=== PATIENT | male | born 1930 | race Caucasian/White ===

== ENCOUNTER 2017-07-20 22:40 | Emergency (ER) | payer MEDICARE, BC, OTHER ==
--- NOTE | 2017-07-20 23:27 | RAD ---
TWO VIEWS OF CHEST 07/20/17 COMPARISON: 05/20/16 HISTORY: Cough and fever. FINDINGS: The lungs are hyperinflated with increased linear interstitial density, stable. no pneumothorax, pleu ral fluid, focal consolidation, or alveolar edema. IMPRESSION: Hyperinflated lungs with diffuse interstitial prominence suggests COPD. No focal consolidation or cailin eolar edema. POS: [facility]
== END 2017-07-20 23:20 | disposition home or self-care (01) ==
LOC: SCSER 22:40
DX: J40 Bronchitis, not specified as acute or chronic (principal); Z86.711 Personal history of pulmonary embolism; Z79.01 Long term (current) use of anticoagulants; Z79.899 Other long term (current) drug therapy
CPT/HCPCS: 71046; 87804

== ENCOUNTER 2017-09-03 15:32 | Emergency (ER) | payer MEDICARE, BC, OTHER ==
[2017-09-03 15:54] LABS: #Basophils 0.1 thou/uL (0.0-0.2); #Eosinphils 0.2 thou/uL (0.0-0.7); #Lymphocytes 2.4 thou/uL (1.20-3.40); #Monocytes 0.8 thou/uL (0.11-0.59); #Neutrophils 4.4 thou/uL (1.40-6.50); %Lymphocytes 30.3 % (21.0-51.0); %Monocytes 9.6 % (0.0-10.0); %Neutrophils 56.1 % (42.0-75.0); Hemoglobin 14.9 g/dL (14.0-18.0); Mean Corpuscular HGB CONC 33.1 g/dL (32.0-36.0); Mean Corpuscular Hemoglobin 31.1 pg (27.0-31.0); Mean Corpuscular Volume 94.1 fl (80.0-94.0); Mean Platelet Volume 6.3 fL (7.4-10.4); Platelet Count 153 thou/uL (130-400); RBC Distribution Width 12.1 % (11.5-14.5); Red Blood Cell (RBC) Count 4.79 mill/uL (4.70-6.10); White Blood Cell (WBC) Count 7.8 thou/uL (4.8-10.8)
[2017-09-03 16:00] LABS: INR-International Normal Ratio 1.6; PTT 35.5 SEC (22.9-36.1); Prothrombin Time 19.8 SEC (12.0-14.7)
[2017-09-03 16:14] LABS: ALT (SGPT) 16 U/L (8-55); AST (SGOT) 19 U/L (5-34); Albumin 3.5 g/dL (3.4-4.8); Alkaline Phosphatase 72 U/L (40-150); Anion Gap 12 mmol/L (10-20); BUN (Urea Nitrogen) 15 mg/dL (8.4-25.7); Bilirubin, Total 0.4 mg/dL (0.2-1.2); CK (CPK) 97 U/L (30-200); Calc. Creatinine Clearance 0 mL/min (70-130); Calcium 9.1 mg/dL (7.8-10.44); Carbon Dioxide 27 mmol/L (23-31); Chloride 106 mmol/L (98-107); Estimated GFR-MDRD 78; Globulin 3.2 g/dL (2.4-3.5); Glucose 110 mg/dL (83-110); Protein, Total 6.7 g/dL (5.8-8.1); Sodium 141 mmol/L (136-145)
[2017-09-03 16:19] LABS: CKMB 2.3 ng/mL (0-6.6); Troponin I Less than 0.010 ng/mL (< 0.028)
== END 2017-09-03 17:21 | disposition home or self-care (01) ==
LOC: ERS 15:32
DX: R00.2 Palpitations (principal); Z86.711 Personal history of pulmonary embolism; Z86.718 Personal history of other venous thrombosis and embolism
CPT/HCPCS: 80053; 82550; 82553; 83880; 84484; 85025; 85610; 85730; 93005; 94760

== ENCOUNTER 2017-09-04 15:21 | Inpatient (IN) | payer MEDICARE, BC, OTHER ==
[2017-09-04 16:01] LABS: #Eosinphils 0.1 thou/uL (0.0-0.7); #Lymphocytes 1.5 thou/uL (1.20-3.40); #Monocytes 0.6 thou/uL (0.11-0.59); #Neutrophils 7.4 thou/uL (1.40-6.50); %Basophils 0.2 % (0.0-1.0); %Lymphocytes 15.2 % (21.0-51.0); %Monocytes 6.5 % (0.0-10.0); %Neutrophils 77.1 % (42.0-75.0); Hemoglobin 14.4 g/dL (14.0-18.0); Mean Corpuscular HGB CONC 31.9 g/dL (32.0-36.0); Mean Corpuscular Hemoglobin 31.1 pg (27.0-31.0); Mean Corpuscular Volume 97.7 fl (80.0-94.0); Mean Platelet Volume 6.5 fL (7.4-10.4); Platelet Count 145 thou/uL (130-400); RBC Distribution Width 12.3 % (11.5-14.5); Red Blood Cell (RBC) Count 4.62 mill/uL (4.70-6.10); White Blood Cell (WBC) Count 9.6 thou/uL (4.8-10.8)
[2017-09-04 16:09] LABS: INR-International Normal Ratio 1.6; Prothrombin Time 19.4 SEC (12.0-14.7)
[2017-09-04 16:24] LABS: ALT (SGPT) 20 U/L (8-55); AST (SGOT) 22 U/L (5-34); Albumin 3.5 g/dL (3.4-4.8); Alkaline Phosphatase 71 U/L (40-150); Anion Gap 12 mmol/L (10-20); BUN (Urea Nitrogen) 15 mg/dL (8.4-25.7); Bilirubin, Total 0.5 mg/dL (0.2-1.2); Calc. Creatinine Clearance 0 mL/min (70-130); Calcium 9.1 mg/dL (7.8-10.44); Carbon Dioxide 25 mmol/L (23-31); Chloride 107 mmol/L (98-107); Estimated GFR-MDRD 73; Globulin 3.2 g/dL (2.4-3.5); Glucose 120 mg/dL (83-110); Protein, Total 6.7 g/dL (5.8-8.1); Sodium 140 mmol/L (136-145)
--- NOTE | 2017-09-04 16:36 | RAD ---
TWO VIEWS LEFT FEMUR 09/04/17 HISTORY: Left lower extremity pain after a fall. FINDINGS: There is a subcapital left femoral neck fracture with varus angulation of the fracture fragments. Dis jose francisco fragment is slightly displaced superiorly. No additional fracture is present. Prominent vascular calcifications are seen posterior to the knee in the region of the popliteal artery. IMPRESSION: Subcapital left femoral neck fracture with varus angulation and mild displacement of fracture fragmen ts. POS: [facility]
--- NOTE | 2017-09-04 16:41 | RAD ---
AP PELVIS RADIOGRAPH 09/04/17 HISTORY: Left lower extremity pain after a fall. COMPARISON: None available. FINDINGS: There is a subcapital left femoral neck fracture with varus angulation and mild impaction of fracture fragments. Distal fracture is slightly displaced superiorly. There is no dislocation and no addition al fracture is appreciated. Degenerative changes are seen in the lower lumbar spine at the pubic symp hysis. Phleboliths overlie the pelvis. IMPRESSION: Mildly angulated and slightly displaced subcapital left femoral neck fracture. POS: [facility]
--- NOTE | 2017-09-04 16:43 | RAD ---
CHEST ONE VIEW: 09/04/17 HISTORY: Chest pain. COMPARISON: 06/27/10. FINDINGS: The cardiac silhouette and pulmonary vasculature are unremarkable. Mediastinum is midline with aortic calcification. No lobar consolidation or evidence of pneumothorax. Lungs are hyperinflated with inte rstitial prominence. lunchroom monitor leads overlie the chest. IMPRESSION: 1. COPD. 2. Atherosclerosis. POS: [facility]
--- NOTE | 2017-09-04 16:44 | RAD ---
SINGLE AP VIEW LEFT HIP: 09/04/17 HISTORY: Left lower extremity pain after a fall. FINDINGS: There is a subcapital left femoral neck fracture with varus angulation of fracture fragments. There i s also mild impaction of the fracture fragments and the distal fracture fragment is displaced superio rly. No definite additional fractures seen, and there is no dislocation. IMPRESSION: Subcapital left femoral neck fracture. POS: [facility]
[2017-09-04] MEDS ORDERED: Fentanyl 100 MCG/2 ML VIAL ONE (17:38)
--- NOTE | 2017-09-04 17:52 | CT ---
NONCONTRAST CT HEAD 09/04/17 HISTORY: Patient fell and is on blood thinners. COMPARISON: 01/11/10. FINDINGS: There is decreased attenuation seen in the periventricular white matter which is nonspecific but like ly reflective of chronic small vessel ischemic changes which do appear mildly progressed when compare d to the prior exam. There is no evidence of an acute cortical infarction, hemorrhage, mass effect, o r midline shift. Cerebral volume loss is again present. The ventricular system is normal in size, sha pe, and position for the degree of sulcal atrophy. No depressed calvarial fracture is seen. There has been no other interval change from prior exam. IMPRESSION: 1. No acute intracranial abnormality is demonstrated. 2. Chronic small vessel ischemic changes and cerebral volume loss. POS: [facility]
--- NOTE | 2017-09-04 18:47 | HP ---
REQUESTING PHYSICIAN: Dr. Palafox, ER. ADMITTING PHYSICIAN: Dr. Shepherd. CONSULTING PHYSICIAN: Dr. Beltran, Orthopedics. REASON FOR HOSPITALIZATION: Ground level fall with left hip pain. HOSPITAL DIAGNOSIS: Left femoral neck subcapital fracture. HISTORY OF PRESENT ILLNESS: Mr. Mcmahan is an 86-year-old male who was in his usual state of health this morning when he walked into the house and was leaning over to kiss his when she lost her ba masood and fell. He attempted to catch her and keep her from falling to the ground when he himself fe ll to the ground onto his left hip. He denied any other injury. He denied striking his head. He de nied LOC. He felt immediate pain in his left hip and leg. EMS was summoned and he was taken to [facility] where a left hip fracture was identified. Pain is exacerbated by movemen t. Pain is relieved by remaining still. Past medical history includes history of DVT and pulmonary embolism for which he takes Xarelto. Trauma Services has been consulted for admission and management . Dr. Beltran, Orthopedics, has been consulted for management of fracture. PAST MEDICAL HISTORY: DVT x2, pulmonary embolism x2. This is approximately 4-5 years ago. PAST SURGICAL HISTORY: 1. Lumbar laminectomy L3-L4, L4-L5 in 2012. 2. Appendectomy. 3. Hernia repair in 1998. SOCIAL HISTORY: The patient lives at home with . The patient previously smoked cigarettes. He stopped smoking 35 years ago. He reports that he does smoke a cigar daily. The patient denies alcoh ol use. The patient denies drug use. CURRENT MEDICATIONS: 1. Xarelto 10 mg. 2. Zetia, unknown mg. ALLERGIES: No known drug allergies. REVIEW OF SYSTEMS: Constitutional: The patient denies chills, fever, recent weight loss or malaise. HEENT: The patient denies pain or redness or drainage. ENT: The patient denies ear pain or drain age. No mouth or neck pain. Cardiovascular: Denies chest pain, palpitations or syncope. Respirato ry: Denies cough, wheezing or shortness of breath. Gastrointestinal: Denies abdominal pain, nausea , vomiting or diarrhea. Genitourinary: Denies dysuria, hematuria, frequency or urgency. Musculoske letal: The patient reports fall, left hip and leg pain. Skin: Denies rashes, denies trauma. Neuro logic: Denies dizziness, denies headache, denies seizures. PHYSICAL EXAMINATION: VITAL SIGNS: Pulse 88, respirations 18, blood pressure 124/69 and O2 sat 93% room air. GENERAL: Elderly male lying in bed in no acute distress. HEENT: Atraumatic and normocephalic. No posterior neck pain. Trachea midline. No JVD. RESPIRATORY: Bilateral breath sounds clear. No respiratory distress. Symmetrical chest wall moveme nt. CARDIOVASCULAR: Regular rate and rhythm. Heart sounds normal. ABDOMEN: Soft, nontender and nondistended. Bowel sounds normal. Pelvis pain to the left hip with p alpation. EXTREMITIES: Pain in the left leg with palpation or movement. Cap refill brisk in all extremities. Neurovascular intact all extremities. BACK: No pain, no trauma. NEUROLOGIC: GCS 15. Awake, alert and oriented x3. SKIN: Within normal limits. Warm and dry. LABORATORY STUDIES: WBC 9.6, RBC 4.62, hemoglobin 14.4, hematocrit 45.1 and platelets 145. Coagulat ion: PT 19.4, INR 1.6. Chemistry: Sodium 140, potassium 4.0, chloride 107, carbon dioxide 25, BUN 15, creatinine 0.97 and glucose 120. DIAGNOSTIC IMAGING: Subcapital left femoral neck fracture. ASSESSMENT AND PLAN: 1. Status post ground level fall. 2. History of deep venous thrombosis and pulmonary embolism, currently on Xarelto. 3. Left subcapital hip fracture. 4. Acute traumatic pain. PLAN: 1. Admit to surgical floor. 2. Consult Orthopedics, Dr. Beltran, done by ER. 3. Regular diet, n.p.o. after midnight. IV fluids after midnight. 4. Hold Xarelto. SCDs for DVT prophylaxis. 5. Pepcid for gastritis prophylaxis. 6. PT, OT evaluation postoperatively with orthopedic restrictions. The patient was reviewed with Dr. Shepherd who agrees with the plan.
[2017-09-04] MEDS ORDERED: Dextrose 5% in Water 1,000 ML IV PRN (19:02)
[2017-09-04] MEDS ORDERED: Dextrose 50% Abboject 50 ML SYRINGE SLOW IVP PRN (19:02)
[2017-09-04] MEDS ORDERED: Morphine 4 MG/ML VIAL IV PRN (19:02)
[2017-09-04] MEDS ORDERED: Acetaminophen 500 MG TAB PO PRN (19:02)
[2017-09-04] MEDS: Pantoprazole 40 MG VIAL IVP SCH (20:51)
[2017-09-04] MEDS ORDERED: Famotidine/PF 20 mg/2ml Vial SLOW IVP SCH (21:00)
--- NOTE | 2017-09-04 23:32 | PRG ---
DATE OF SERVICE: 09/04/2017 SUBJECTIVE: The patient is currently on the surgical floor. He was admitted earlier today for groun d level fall in which he sustained left femoral neck fracture. He is currently awaiting his orthoped ic repair in the morning. The patient states that his pain is controlled and he is denying wanting a ny p.o. at this time. He was made aware that he will be n.p.o. after midnight, which he agreed that he had been told that. PHYSICAL EXAMINATION: VITAL SIGNS: Temperature is 98.3, heart rate 78, blood pressure 146/81, respirations 20, oxygen satu ration is 96% on 2 liters via nasal cannula. GENERAL: The patient is resting comfortably in bed. He is awake, alert, and oriented x3 and appropr iate. LUNGS: Clear to auscultation with good inspiratory and expiratory effort. HEART: Regular rate and rhythm. ABDOMEN: Soft, flat, nontender with active bowel sounds. EXTREMITIES: Neurovascularly intact x4. ASSESSMENT: 1. Status post ground level fall. 2. Left femoral neck fracture. 3. History of Xarelto use. PLAN: Will be to continue supportive care, pain management and await orthopedic repair in the [facility]. Afterwards, the patient most likely will begin physical and occupational therapy and placement di scussions will be started.
[2017-09-05] MEDS: Acetaminophen 1,000 MG in Premix Bag 1 BAG IVPB SCH ×3 (00:16→12:01)
[2017-09-05] MEDS: Sodium Chloride 0.9% 1,000 ML IV SCH ×3 (00:16→17:45)
--- NOTE | 2017-09-05 04:03 | CON ---
DATE OF CONSULTATION: 09/04/2017 CHIEF COMPLAINT: Left hip pain. HISTORY OF PRESENT ILLNESS: Mr. Mcmahan is an 86-year-old male who fell today. He was trying to hel p prevent his from falling when they both lost balance and fell to the ground. He attempted to catch her, but felt his hip give way. He landed on a tile floor. He was unable to ambulate. He den ied loss of consciousness and did not strike his head. He was taken to the emergency department by [facility]. He has been found to have a left femoral neck fracture. Orthopedics was consulted as well as [facility] Trauma Service. The patient is having some pain in the hip. He has received pain medications. He has had no instability. PAST MEDICAL HISTORY: History of DVT and subsequent pulmonary embolism. He has been on Xarelto and is planning to be on this for life. He denies other active medical problems currently. PAST SURGICAL HISTORY: Lumbar laminectomy, appendectomy, hernia repair. SOCIAL HISTORY: The patient lives with his . They are independent. He does not use a cane or a walker. He denies smoking cigarettes, but does smoke an occasional cigar. No drinking or drug use. MEDICATIONS: Include Xarelto and Zetia. ALLERGIES: No known drug allergies. REVIEW OF SYSTEMS: Positive for left hip pain with movement, otherwise 10 point review of systems is negative. PHYSICAL EXAMINATION: VITAL SIGNS: Stable, normotensive, 98% on room air. GENERAL: He is alert and oriented, no apparent distress. RESPIRATORY: Breathing comfortably. HEENT: Normocephalic, atraumatic. ABDOMEN: Soft, nontender, nondistended. MUSCULOSKELETAL: The patient's left leg has pain with motion. He is shortened and externally rotate d in the leg. He is able flex and extend the toes and ankle. Palpable dorsalis pedis pulse. IMAGES: X-rays of the left femur and pelvis demonstrate a displaced left femoral neck fracture which is acute. IMPRESSION: Left displaced femoral neck fracture in an elderly male. PLAN: At this point, the patient will be admitted to the hospital. He will have pain control. He w ill have appropriate resuscitation and preoperative medical optimization. He should be a good candid ate for surgery. I would like to take him to surgery tomorrow for bipolar hemiarthroplasty of the hi p to restore mobility and prevent complications of prolonged bed rest. He is at high risk of DVT or PE given his history. We will restart him on his blood thinner postoperatively. He will have mechan ical DVT prophylaxis as well. Questions have been answered. He is aware of risks and wants to proce ed.
[2017-09-05 04:35] LABS: #Eosinphils 0.2 thou/uL (0.0-0.7); #Lymphocytes 1.8 thou/uL (1.20-3.40); #Neutrophils 7.4 thou/uL (1.40-6.50); %Basophils 0.2 % (0.0-1.0); %Eosinophils 1.8 % (0.0-10.0); %Lymphocytes 17.4 % (21.0-51.0); %Monocytes 9.4 % (0.0-10.0); %Neutrophils 71.2 % (42.0-75.0); Hemoglobin 13.3 g/dL (14.0-18.0); Mean Corpuscular HGB CONC 33.4 g/dL (32.0-36.0); Mean Corpuscular Hemoglobin 32.3 pg (27.0-31.0); Mean Corpuscular Volume 96.7 fl (80.0-94.0); Mean Platelet Volume 7.1 fL (7.4-10.4); Platelet Count 125 thou/uL (130-400); RBC Distribution Width 12.2 % (11.5-14.5); Red Blood Cell (RBC) Count 4.12 mill/uL (4.70-6.10); White Blood Cell (WBC) Count 10.4 thou/uL (4.8-10.8)
[2017-09-05 04:39] LABS: Anion Gap 10 mmol/L (10-20); BUN (Urea Nitrogen) 14 mg/dL (8.4-25.7); Calc. Creatinine Clearance 77 mL/min (70-130); Calcium 8.6 mg/dL (7.8-10.44); Carbon Dioxide 27 mmol/L (23-31); Chloride 107 mmol/L (98-107); Estimated GFR-MDRD 87; Glucose 108 mg/dL (83-110); Magnesium 1.9 mg/dL (1.6-2.6); Phosphorus 3.3 mg/dL (2.3-4.7); Potassium 3.9 mmol/L (3.5-5.1); Sodium 140 mmol/L (136-145)
[2017-09-05] MEDS ORDERED: CEFAZOLIN/Water 2 GM/20 ML SYRINGE ONE (07:40)
[2017-09-05] MEDS ORDERED: Neomycin-Polymyxin 1 ML AMP ONE (07:54)
[2017-09-05] MEDS ORDERED: CEFAZOLIN/Water 2 GM/20 ML SYRINGE SLOW IVP SCH (08:00)
[2017-09-05] MEDS ORDERED: Fentanyl 100 MCG/2 ML VIAL ONE (08:43)
[2017-09-05] MEDS ORDERED: Promethazine HCl 25 MG/ML VIAL IM PRN (09:13)
[2017-09-05] MEDS ORDERED: Promethazine HCl 25 MG/ML VIAL SLOW IVP PRN (09:13)
[2017-09-05] MEDS ORDERED: Ondansetron HCl/PF 4 MG/2 ML Vial IVP PRN (09:13)
--- NOTE | 2017-09-05 10:15 | RAD ---
SINGLE CROSS TABLE LATERAL VIEW OF LEFT HIP: Date: 09/05/17 INDICATION: Surgical fixation. FINDINGS: There is a prosthesis in place, appropriately aligned on the provided lateral view. IMPRESSION: Postoperative left hip. POS: [facility]
--- NOTE | 2017-09-05 10:16 | RAD ---
FRONTAL VIEW PELVIS: Date: 09/05/17 INDICATION: Fracture fixation. FINDINGS: Left hip prosthesis is present and appropriately aligned where visualized. Skin jailyn overlie the l eft lateral pelvic soft tissues. There is osseous degenerative change. IMPRESSION: Postoperative left hip. POS: [facility]
--- NOTE | 2017-09-05 10:20 | PRG ---
DATE OF SERVICE: 09/05/2017 Please see Marlen Majano' full H and P and Grey Fleming's note from last night. Briefly, the patient is a status post ground level fall, left femoral neck fracture. He is on his wa y to the operating room today for Devin to repair that, has a history of Xarelto. 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 He has been hemodynamically stable. Please see Marlen Majano' note for full detail s. PLAN: ORIF of femoral neck fracture today. Plan to resume Xarelto postop. We will follow.
--- NOTE | 2017-09-05 14:55 | OP ---
DATE OF OPERATION: 09/05/2017 OPERATION PERFORMED: Left hip bipolar hemiarthroplasty. PREOPERATIVE DIAGNOSIS: Left femoral neck fracture. POSTOPERATIVE DIAGNOSIS: Left femoral neck fracture. COMPLICATIONS: None. ESTIMATED BLOOD LOSS: Minimal. SURGEON: Humberto Beltran M.D. TURN MACHINE OPERATOR: Rojelio Sarkar PA-C. IMPLANTS: DePuy Quinnesec basic press-fit stem size 6, 53 mm bipolar shell with a +5 femoral head. INDICATIONS: Mr. Mcmahan is an 86-year-old male who fell. He fractured his left femoral neck. He w as indicated for hemiarthroplasty of the hip to restore mobilization and promote healing. Risks have been reviewed and have been deemed acceptable. He elected to proceed with the operation. DESCRIPTION OF PROCEDURE: Mr. Mcmahan was identified in the preoperative holding area. His correct extremity was marked. He was carried to the operating room. He was positioned supine. General anes thesia was induced. A multidisciplinary timeout was performed. The left lower extremity was prepped and draped in a sterile fashion. We began the procedure with a posterior approach to the hip. We dissected down through the subcutane ous tissues to the fascia, which was opened. We then exposed the short external rotators of the hip. These were subperiosteally divided from the proximal femur. We then removed the patient's broken f emoral head. We performed a new osteotomy of the femoral neck. At this point, we removed any bony f ragments and thoroughly irrigated. We then entered the intramedullary canal of the femur. We latera lized and then reamed up to a size 6. We then sequentially broached up to a size 6. This gave a goo d fit. We proceeded with trialing a +8.5 femoral head which was appropriate for length. The patient had good range of motion and was stable. We removed the trial components. We then impacted our fin al components after irrigation. Finally, we placed a #5 Ethibond suture in the short external rotato rs and brought this through drill holes in the trochanter. These were repaired. We then closed the fascia with #2 Vicryl suture, 2-0 Vicryl suture and jailyn were used. A sterile dressing was applie d. The patient was taken to the recovery room in good condition without complication at this point.
[2017-09-05] MEDS ORDERED: traMADol HCl 50 MG TAB PO SCH (15:00)
--- NOTE | 2017-09-05 15:19 | PRG ---
DATE OF SERVICE: 09/05/2017 ATTENDING PHYSICIAN: Donavon Shepherd M.D. SUBJECTIVE: Mr. Mcmahan is an 86-year-old man who was admitted 1 day ago, status post ground level f all. He sustained a left hip fracture. He was taken to the OR today by Orthopedic Surgery. He is n ow seen postoperatively on the surgical floor. Pain is well controlled and he is sitting up in bed, eating. OBJECTIVE: VITAL SIGNS: Temperature 98.1, pulse 82, respirations 16, O2 sat 90% on room air and blood pressure 93/52. GENERAL: An elderly male lying in bed in no acute distress. HEENT: Atraumatic and normocephalic. RESPIRATORY: Bilateral breath sounds clear. No respiratory distress. CARDIOVASCULAR: Regular rate and rhythm. Heart sounds normal. ABDOMEN: Soft, nontender and nondistended. EXTREMITIES: Moves all extremities. Cap refill brisk, 2+ pulses in all extremities. Surgical dress ing in place left hip, clean, dry, and intact. NEUROLOGIC: GCS 15. Awake, alert and oriented x3. ASSESSMENT: 1. Status post ground level fall. 2. Status post open reduction and internal fixation left hip, postoperative day #0. 3. Acute traumatic pain, well controlled. 4. History of deep venous thrombosis and pulmonary embolism. PLAN: 1. Transition from IV to oral analgesia. 2. PT, OT evaluation and treatment with orthopedic restrictions. 3. Advance to regular diet. 4. Discontinue IV fluids if tolerates regular diet. 5. Restart the patient's home Xarelto. 6. Antibiotics per Orthopedic Service. The patient was reviewed with Dr. Shepherd, who agrees with the plan.
[2017-09-05] MEDS ORDERED: Ondansetron HCl/PF 4 MG/2 ML Vial ONE (17:08)
[2017-09-05] MEDS ORDERED: Dexamethasone 20 MG/5 ML VIAL ONE (17:08)
[2017-09-05] MEDS ORDERED: PHENYLEPHRINE-NS 100 MCG/ML 10 ML SYRINGE ONE (17:08)
[2017-09-05] MEDS ORDERED: Lidocaine 1% PF 5 ML VIAL ONE (17:08)
[2017-09-05] MEDS ORDERED: PROPOFOL 200 MG/20 ML VIAL ONE (17:08)
[2017-09-05] MEDS ORDERED: Glycopyrrolate 0.2 MG/ML 5 ML SYRINGE ONE (17:08)
[2017-09-05] MEDS ORDERED: Esmolol 100 MG/10 ML VIAL ONE (17:08)
[2017-09-05] MEDS: CEFAZOLIN/Water 2 GM/20 ML SYRINGE SLOW IVP SCH ×2 (17:27→23:25)
[2017-09-05] MEDS: Acetaminophen 500 MG TAB PO SCH ×2 (18:12→23:25)
[2017-09-05] MEDS: Pantoprazole 40 MG VIAL IVP SCH (20:01)
[2017-09-06] MEDS: Sodium Chloride 0.9% 1,000 ML IV SCH ×3 (02:37→17:56)
[2017-09-06] MEDS: Acetaminophen 500 MG TAB PO SCH ×3 (05:56→17:57)
[2017-09-06 08:44] LABS: #Eosinphils 0.1 thou/uL (0.0-0.7); #Lymphocytes 1.5 thou/uL (1.20-3.40); #Monocytes 1.5 thou/uL (0.11-0.59); #Neutrophils 12.5 thou/uL (1.40-6.50); %Basophils 0.3 % (0.0-1.0); %Eosinophils 0.4 % (0.0-10.0); %Lymphocytes 9.5 % (21.0-51.0); %Monocytes 9.7 % (0.0-10.0); %Neutrophils 80.1 % (42.0-75.0); Mean Corpuscular HGB CONC 33.4 g/dL (32.0-36.0); Mean Corpuscular Hemoglobin 31.6 pg (27.0-31.0); Mean Corpuscular Volume 94.6 fl (80.0-94.0); Mean Platelet Volume 6.6 fL (7.4-10.4); Platelet Count 105 thou/uL (130-400); White Blood Cell (WBC) Count 15.6 thou/uL (4.8-10.8)
[2017-09-06] MEDS: Rivaroxaban 10 MG TAB PO SCH (08:47)
--- NOTE | 2017-09-06 14:26 | PRG ---
DATE OF SERVICE: 09/06/2017 ATTENDING PHYSICIAN: Dr. Shaun Shepherd. SUBJECTIVE: Mr. Mcmahan is an 86-year-old man who was admitted 2 days ago, status post ground level fall. He sustained a left hip fracture. He was taken to the OR yesterday by Orthopedic Surgery. He has been managed on the surgical floor postoperatively. His pain has been well controlled. He is m obilizing with physical and occupational therapy. OBJECTIVE: VITAL SIGNS: Temperature 98.1, pulse 75, respirations 20, O2 sat 92% on 2 liters nasal cannula, bloo d pressure 124/68. GENERAL: Elderly male sitting up in chair, no acute distress. HEENT: Atraumatic, normocephalic. RESPIRATORY: Bilateral breath sounds clear. No respiratory distress. CARDIOVASCULAR: Regular rate and rhythm. Heart sounds normal. ABDOMEN: Soft, nontender, nondistended. EXTREMITIES: Moves all extremities. Cap refill brisk. 2+ pulses in all extremities. Surgical dres sing in place left hip, clean, dry and intact. NEUROLOGIC: GCS 15. Awake, alert, oriented x3. LABORATORY DATA: Hematology: RBC 3.80, hemoglobin 12.0 down from 13.3 yesterday, hematocrit 36.0 do wn from 39.8. ASSESSMENT: 1. Status post ground level fall. 2. Status post open reduction and internal fixation left hip. Postoperative day #1. 3. Acute traumatic pain well controlled. 4. History of deep venous thrombosis and pulmonary embolism. PLAN: 1. Continue oral analgesia. 2. Continue PT, OT while in hospital. 3. Discontinue IV fluids. 4. Continue home dose Xarelto. 5. Antibiotics per Orthopedic Service. 6. Case management for discharge planning. Anticipate patient will discharge to rehab. The patient was seen and examined with Dr. Shepherd who agrees with this plan.
[2017-09-06] MEDS: Pantoprazole 40 MG VIAL IVP SCH (20:08)
[2017-09-06] MEDS: Senokot S 8.6-50 MG TAB PO SCH (20:09)
--- NOTE | 2017-09-06 22:38 | PRG ---
DATE OF SERVICE: 09/06/2017 SUBJECTIVE: The patient is hospital day #2, postop day #1 status post ground level fall in which he sustained left hip fracture. Yesterday, he was taken to the operating room and underwent his orthope dic repair of the hip fracture. Today, he had been working with physical and occupational therapy, a nd had made very good progress with them. He states that his pain is controlled and he is tolerating a diet. His bowel function has not returned at this time. PHYSICAL EXAMINATION: VITAL SIGNS: Temperature is 98.4, heart rate 83, blood pressure 124/70, respirations 18, oxygen satu ration is 94% on 2 liters via nasal cannula. GENERAL: The patient is resting comfortably, sitting in a chair at bedside. He is awake, alert, concha ented, and very appropriate and denies any complaints at this time. LUNGS: Clear to auscultation bilaterally with good inspiratory and expiratory effort. HEART: Regular rate and rhythm. ABDOMEN: Soft, flat, nontender with active bowel sounds. Postop dressing is clean, dry, and intact. EXTREMITIES: Neurovascularly intact x4. ASSESSMENT AND PLAN: 1. Status post ground level fall. 2. Status post left hip fracture, status post open reduction internal fixation of same. Plan will be to continue physical and occupational therapy and await placement decision.
[2017-09-07] MEDS: Acetaminophen 500 MG TAB PO SCH ×4 (00:34→17:51)
[2017-09-07] MEDS: Sodium Chloride 0.9% 1,000 ML IV SCH ×3 (02:14→17:54)
--- NOTE | 2017-09-07 08:10 | RAD ---
SINGLE VIEW OF THE CHEST: COMPARISON: 09/04/17. HISTORY: Hypoxia. FINDINGS: A single view of the chest shows a normal-size cardiomediastinal silhouette with atherosclerotic calc ifications in the aorta. Increased interstitial markings are present. There is no evidence of conso lidation, mass, or pleural effusion. Degenerative changes are seen in the spine. IMPRESSION: 1. No evidence of acute cardiopulmonary disease. 2. Atherosclerotic disease. POS: [facility]
[2017-09-07] MEDS ORDERED: Metoprolol Tartrate 5 MG/5 ML VIAL IVP SCH (09:00)
[2017-09-07] MEDS: Rivaroxaban 10 MG TAB PO SCH (09:22)
[2017-09-07] MEDS: Polyethylene Glycol 3350 17 GM Packet PO SCH (09:22)
[2017-09-07] MEDS: Senokot S 8.6-50 MG TAB PO SCH ×2 (09:22→21:27)
[2017-09-07 10:09] LABS: #Eosinphils 0.5 thou/uL (0.0-0.7); #Lymphocytes 1.4 thou/uL (1.20-3.40); #Monocytes 0.8 thou/uL (0.11-0.59); #Neutrophils 8.2 thou/uL (1.40-6.50); %Basophils 0.3 % (0.0-1.0); %Eosinophils 4.7 % (0.0-10.0); %Lymphocytes 12.5 % (21.0-51.0); %Monocytes 7.6 % (0.0-10.0); %Neutrophils 74.9 % (42.0-75.0); Hemoglobin 12.8 g/dL (14.0-18.0); Mean Corpuscular HGB CONC 32.2 g/dL (32.0-36.0); Mean Corpuscular Hemoglobin 30.7 pg (27.0-31.0); Mean Corpuscular Volume 95.3 fl (80.0-94.0); Mean Platelet Volume 7.1 fL (7.4-10.4); Platelet Count 112 thou/uL (130-400); RBC Distribution Width 12.2 % (11.5-14.5); Red Blood Cell (RBC) Count 4.17 mill/uL (4.70-6.10)
[2017-09-07 10:14] LABS: CKMB 3.8 ng/mL (0-6.6); Troponin I Less than 0.010 ng/mL (< 0.028)
[2017-09-07 10:19] LABS: BUN (Urea Nitrogen) 13 mg/dL (8.4-25.7); Calc. Creatinine Clearance 86 mL/min (70-130); Calcium 8.8 mg/dL (7.8-10.44); Carbon Dioxide 28 mmol/L (23-31); Chloride 107 mmol/L (98-107); Estimated GFR-MDRD Greater than 90; Glucose 92 mg/dL (83-110); Magnesium 1.7 mg/dL (1.6-2.6); Phosphorus 2.3 mg/dL (2.3-4.7); Potassium 4.1 mmol/L (3.5-5.1); Sodium 139 mmol/L (136-145)
[2017-09-07 10:40] LABS: Anion Gap 7 mmol/L (10-20)
[2017-09-07] MEDS ORDERED: Magnesium Sulfate 2 GM in Sodium Chloride 0.9% 100 ML IVPB SCH (10:45)
[2017-09-07] MEDS ORDERED: Magnesium 2 GM/NS 0.9% 50 ML 2 GM in Premix Bag 1 BAG IVPB SCH (11:00)
[2017-09-07 11:09] VITALS: BMI 27.0
[2017-09-07] MEDS ORDERED: Esmolol 2,500 MG/250 ML 250 ML IVPB SCH (11:45)
[2017-09-07] MEDS ORDERED: Amiodarone 200 MG TAB PO SCH (12:00)
--- NOTE | 2017-09-07 12:24 | PRG ---
DATE OF SERVICE: 09/07/2017 SUBJECTIVE: Mr. Mcmahan seen on rounds today. He is in atrial fibrillation with rapid ventricular r ate. He is to be transferred to telemetry. We will obtain Cardiology consult.
[2017-09-07] MEDS ORDERED: Sodium Chloride 0.9% 500 ML IV SCH ×2 (13:30→13:49)
--- NOTE | 2017-09-07 13:30 | PRG ---
DATE OF SERVICE: 09/07/2017 ATTENDING PHYSICIAN: Dr. Shepherd. SUBJECTIVE: Mr. Mcmahan is an 86-year-old male who was admitted 3 days ago after suffering a ground level fall. He sustained a left hip fracture. He is now postop day #2 status post open reduction an d internal fixation. Patient had been stable in the surgical floor; however, this morning he was not ed to be in atrial fibrillation with RVR, heart rate of 116. Per review of patient's records and pat ient report, there are no prior episodes of atrial fibrillation in patient's history. OBJECTIVE: VITAL SIGNS: BP 105/83, pulse 116, temperature 97.8, respirations 22, O2 sat 92% on 2 liters. GENERAL APPEARANCE: Elderly male lying in bed in no acute distress. HEENT: Normocephalic and atraumatic. RESPIRATORY: Breath sounds are clear to auscultation bilaterally with normal effort. CARDIOVASCULAR: He has an irregularly irregular rhythm. He is tachycardic. ABDOMEN: Soft, nontender, and nondistended. EXTREMITIES: The patient moves all extremities. Surgical dressing at the left hip is clean and dry. NEUROLOGIC: The patient's GCS is 15. He has no focal deficits. LABORATORY DATA: Hematology: WBC is 11.0, hemoglobin 12.8, hematocrit 39.8, platelets 112. Concrete Mixer Operator Helper ry: Sodium 139, potassium 4.1, chloride 107, bicarbonate 28, BUN 13, creatinine 0.74, glucose 92, ca lcium 8.8, phosphorus 2.3, and magnesium 1.7. CK-MB 3.8. Troponin I less than 0.010. TSH 1.3719. IMAGING: Chest x-ray: 1. No evidence of acute cardiopulmonary disease. 2. Atherosclerotic disease. ASSESSMENT: 1. Status post ground level fall. 2. Left hip fracture status post open reduction and internal fixation, postop day #2. 3. Acute traumatic pain. 4. History of deep venous thrombosis with pulmonary embolism, currently on Xarelto. 5. New onset atrial fibrillation with rapid ventricular rate. PLAN: 1. Stat EKG confirmed patient was in atrial fibrillation with RVR. Cardiac enzymes were normal. Th yroid stimulating hormone was normal. The patient started on 5 mg IV metoprolol. We will transfer t he patient to telemetry and obtain a Cardiology consult. 2. Continue PT and OT while in hospital. 3. Continue home Xarelto. 4. Continue antibiotics per Orthopedics. 5. Case management is following for help with discharge planning. Once patient is medically stable, patient will likely discharge to rehabilitation. This patient was seen and examined along with Dr. Shepherd on rounds and agrees with the assessment an d plan.
--- NOTE | 2017-09-07 13:33 | CON ---
DATE OF CONSULTATION: 09/07/2017 REASON FOR CONSULTATION: Atrial fibrillation with a rapid rate. HISTORY OF PRESENT ILLNESS: Mr. Mcmahan is a delightful 86-year-old gentleman who was admitted to [facility] with a femoral neck fracture. The patient has developed atrial fibrillation with a rapid rate. Mr. Moran was admitted to the hospital on 09/04/2017. The patient bent over to try to kiss his . She lost her balance. He tried to grab her. As he grabbed her, he was in an awkward angle and he had a developed a fracture of his leg. The patient did well with the orthopedic treatment and surger y. The patient was, however, found to have very rapid rate. EKG revealed atrial fibrillation with a rapid rate and he has been brought to the telemetry area for further therapy. PAST MEDICAL HISTORY: History of deep venous thrombosis and pulmonary embolism. He is on outpatient Xarelto. PAST SURGICAL HISTORY: 1. Lumbar laminectomy. 2. Appendectomy. 3. Hernia repair. SOCIAL HISTORY: He lives at home with his . MEDICATIONS: Prior to admission, Xarelto and Zetia. ALLERGIES: None known. REVIEW OF SYSTEMS: Constitutional: No significant weight gain or loss. Vision: No changes. Heari ng: No changes. Pulmonary: No cough or wheezing. Gastrointestinal: No nausea, vomiting, diarrhea . Skin: No rashes. Neurologic: No unilateral weakness or numbness. Psychiatric: No unusual depr ession or anxiety. Hematologic: No unusual bruising. Genitourinary: No burning with urination. PHYSICAL EXAMINATION: GENERAL: A delightful elderly gentleman in no distress. VITAL SIGNS: Blood pressure 153/65 followed by 125/81, pulse is variable, sometimes it is 130 and so metimes the rate drops down briefly with a slight pause when the tachycardia resolves. HEENT: Sclerae nonicteric. Mouth, mucous membranes moist. NECK: Supple, no lymphadenopathy. LUNGS: Clear, no wheezing, rales or rhonchi. CARDIAC: Normal S1, normal S2. Could be extremely tachycardic, no murmur, rub or gallop. ABDOMEN: Soft, nontender. EXTREMITIES: No clubbing or cyanosis. There is no edema. HEMATOLOGIC: No unusual bruising. GENITOURINARY: No burning with urination. LABORATORY DATA AND X-RAY FINDINGS: EKG did reveal atrial fibrillation with a rapid rate of 147. Th e EKG also reveals a left axis deviation. ASSESSMENT: 1. Atrial fibrillation with a rapid rate. 2. Left axis deviation. 3. Recent femoral neck fracture. PLAN: 1. We will start oral amiodarone. 2. Intravenous beta blockers. 3. Echocardiogram. 4. If the patient develops pauses on medication, may ultimately need pacemaker insertion, will need to observe this.
[2017-09-07] MEDS: Diltiazem 125 MG in Sodium Chloride 0.9% 100 ML IVPB SCH (13:40)
[2017-09-07] MEDS: Amiodarone 200 MG TAB PO SCH ×2 (16:37→21:27)
[2017-09-08] MEDS: Acetaminophen 500 MG TAB PO SCH ×4 (04:00→17:18)
[2017-09-08] MEDS: Sodium Chloride 0.9% 1,000 ML IV SCH ×2 (04:03→12:52)
[2017-09-08 06:13] LABS: #Eosinphils 0.8 thou/uL (0.0-0.7); #Lymphocytes 1.6 thou/uL (1.20-3.40); #Monocytes 1.1 thou/uL (0.11-0.59); #Neutrophils 6.5 thou/uL (1.40-6.50); %Basophils 0.2 % (0.0-1.0); %Eosinophils 7.8 % (0.0-10.0); %Lymphocytes 15.6 % (21.0-51.0); %Monocytes 11.2 % (0.0-10.0); %Neutrophils 65.2 % (42.0-75.0); Hemoglobin 12.2 g/dL (14.0-18.0); Mean Corpuscular HGB CONC 32.2 g/dL (32.0-36.0); Mean Corpuscular Hemoglobin 31.3 pg (27.0-31.0); Mean Corpuscular Volume 97.3 fl (80.0-94.0); Mean Platelet Volume 8.4 fL (7.4-10.4); Platelet Count 108 thou/uL (130-400); RBC Distribution Width 12.5 % (11.5-14.5)
[2017-09-08] MEDS: Diltiazem 125 MG in Sodium Chloride 0.9% 100 ML IVPB SCH (06:31)
[2017-09-08 06:34] LABS: Anion Gap 11 mmol/L (10-20); BUN (Urea Nitrogen) 16 mg/dL (8.4-25.7); Calc. Creatinine Clearance 87 mL/min (70-130); Calcium 8.8 mg/dL (7.8-10.44); Carbon Dioxide 26 mmol/L (23-31); Chloride 105 mmol/L (98-107); Estimated GFR-MDRD Greater than 90; Glucose 95 mg/dL (83-110); Magnesium 2.2 mg/dL (1.6-2.6); Phosphorus 2.9 mg/dL (2.3-4.7); Potassium 4.7 mmol/L (3.5-5.1); Sodium 137 mmol/L (136-145)
--- NOTE | 2017-09-08 08:02 | EKG ---
Test Reason : Blood Pressure : / mmHG Vent. Rate : 147 BPM Atrial Rate : 115 BPM P-R Int : 000 ms QRS Dur : 094 ms QT Int : 296 ms P-R-T Axes : 000 -70 109 degrees QTc Int : 463 ms Atrial fibrillation with rapid ventricular response with premature ventricular or aberrantly conducte d complexes Left axis deviation Inferior infarct , age undetermined Abnormal ECG When compared with ECG of 04-SEP-2017 15:39, (Unconfirmed) Atrial fibrillation has replaced Sinus rhythm Vent. rate has increased BY 77 BPM Inferior infarct is now Present ST now depressed in Anterolateral leads Confirmed by VÍCTOR MARCOS ([id number]) on 09/08/2017 8:02:23 AM Referred By: ALFRED Confirmed By:VÍCTOR MARCOS
[2017-09-08] MEDS: Rivaroxaban 10 MG TAB PO SCH (10:13)
[2017-09-08] MEDS: Amiodarone 200 MG TAB PO SCH ×3 (10:13→21:41)
[2017-09-08] MEDS: Senokot S 8.6-50 MG TAB PO SCH ×2 (10:39→21:42)
[2017-09-08] MEDS: Bisacodyl 10 MG SUPP PR SCH (10:39)
[2017-09-08] MEDS: Polyethylene Glycol 3350 17 GM Packet PO SCH (10:39)
--- NOTE | 2017-09-08 10:48 | PRG ---
DATE OF SERVICE: 09/08/2017 Mr. Mcmahan is doing well today. He has been maintaining sinus rhythm. He is feeling fine. He feels like he has to go to the bathroom. He has no chest pain or pressure. PHYSICAL EXAMINATION: VITAL SIGNS: Blood pressure 133/64, pulse 68, sinus on the monitor. NECK: Neck veins normal. LUNGS: Clear. CARDIAC: Normal S1, normal S2. ABDOMEN: Soft, nontender. EXTREMITIES: There is no significant edema. ASSESSMENT: Paroxysmal atrial fibrillation, responding to amiodarone. PLAN: 1. Diltiazem intravenous discontinued. 2. If he does well tomorrow he should be able to go to the rehab, reduce the amiodarone to 200 mg tw ice a day for 3 weeks, then 200 mg once a day.
--- NOTE | 2017-09-08 15:15 | PRG ---
DATE OF SERVICE: 09/08/2017 ATTENDING PHYSICIAN: Dr. Shepherd. SUBJECTIVE: Mr. Mcmahan is an 86-year-old male, who was admitted 4 days ago after suffering a ground -level fall. He sustained a left hip fracture and is now postop day #3, status post open reduction a nd internal fixation. The patient had an episode of new onset atrial fibrillation with RVR. His max heart rate was approximately 200 beats per minute after he was transferred to telemetry. He was sta rted on a Cardizem drip and amiodarone, and subsequently converted to sinus rhythm. He has remained in sinus rhythm since that time. This morning, on exam, he localizes no complaints and is eager to g et out of the hospital. OBJECTIVE: VITAL SIGNS: BP 133/64, pulse 71, temperature 98.1, respirations 18, O2 sat 95% on room air. GENERAL APPEARANCE: Elderly male sitting in bed in no acute distress. HEENT: Normocephalic and atraumatic. RESPIRATORY: His breath sounds are clear to auscultation bilaterally with normal effort. CARDIOVASCULAR: He has a regular rate and rhythm. He has no murmurs, gallops, or rubs. ABDOMEN: Soft, nontender, and nondistended. He has positive bowel sounds. EXTREMITIES: The patient moves all extremities. He is neurovascularly intact x4. Surgical dressing at the left hip is clean and dry. NEUROLOGIC: The patient's GCS is 15. He is alert and oriented x3 and has no focal deficits. LABORATORY DATA: Hematology: WBC is 10.0, hemoglobin 12.2, hematocrit 38.0, platelets 108. Fertilizer Mixer ry: Sodium 137, potassium 4.7, chloride 105, bicarbonate 26, BUN 16, creatinine 0.74, glucose 95, ca lcium 8.8, phosphorus 2.9, magnesium 2.2. IMAGING: There are no images to review today. ASSESSMENT: 1. Status post ground-level fall. 2. Left hip fracture, status post open reduction and internal fixation on postoperative day #3. 3. New onset atrial fibrillation with rapid ventricular rate. 4. Acute traumatic pain. 5. History of deep vein thrombosis with pulmonary embolism, on Xarelto. PLAN: 1. A Cardizem drip was discontinued today per Dr. Haynes. The patient remains on amiodarone. He wi ll remain on this 200 mg twice a day for 3 weeks and then [address] Haynes recommending a followup as an outpatient in 3 weeks. I appreciate Cardiology recommendations. 2. Case management following for discharge planning. [facility] Per discussion with Dr. Haynes, the patient will be able to go tomorrow as long as he remains in sinus rhythm. 3. Add lactulose and Dulcolax for help with bowel function. The patient was seen and examined along with Dr. Shepherd on rounds, who agrees with the assessment an d plan.
[2017-09-09] MEDS: Acetaminophen 500 MG TAB PO SCH ×3 (00:15→12:24)
[2017-09-09] MEDS: Rivaroxaban 10 MG TAB PO SCH (09:16)
[2017-09-09] MEDS: Amiodarone 200 MG TAB PO SCH (09:16)
[2017-09-09] MEDS: Bisacodyl 10 MG SUPP PR SCH (09:17)
[2017-09-09] MEDS: Senokot S 8.6-50 MG TAB PO SCH (09:17)
[2017-09-09] MEDS: Polyethylene Glycol 3350 17 GM Packet PO SCH (09:17)
--- NOTE | 2017-09-09 10:20 | PRG ---
DATE OF SERVICE: 09/09/2017 HISTORY: Mr. Mcmahan is doing okay. He is in bed. He does not seem to be moving around a lot. No chest pain or shortness of breath. He maintained sinus rhythm. PHYSICAL EXAMINATION: VITAL SIGNS: Blood pressure is stable at 138/67 and pulse 66. LUNGS: Clear. CARDIAC: Normal S1 and normal S2. ABDOMEN: Soft and nontender. EXTREMITIES: No significant edema. PERTINENT LABORATORY DATA: Hemoglobin yesterday was 12.2. INR was 1.6 on the 7th. Creatinine is 0. 74. ASSESSMENT: 1. History of deep vein thrombosis. 2. Paroxysmal atrial fibrillation with a rapid ventricular response. 3. Recent hip surgery. 4. We will need a lot of rehabilitation, it appears. PLAN: 1. We would increase the Xarelto to 15 mg a day, starting tomorrow. 2. Reduce amiodarone to 200 mg twice a day for 3-4 weeks and then 200 mg once a day. Ultimately, sarahi nj consider cutting to 100 mg 3. Okay with me to go to rehabilitation. It looks like he is going to need a lot of rehabilitation, as he had been very inactive and he is very elderly.
[2017-09-09 11:18] VITALS: TEMP 97.9
[2017-09-09 15:56] VITALS: BP 115/67
[2017-09-09] MEDS ORDERED: Amiodarone 200 MG TAB PO SCH ×2 (21:00)
[2017-09-09] MEDS ORDERED: Ezetimibe 10 MG TAB PO SCH (21:00)
--- NOTE | 2017-09-10 01:21 | DIS ---
DATE OF ADMISSION: 09/04/2017 DATE OF DISCHARGE: 09/09/2017 ADMITTING PHYSICIAN: Dr. Shepherd DISCHARGING PHYSICIAN: Dr. Nunn. ADMISSION DIAGNOSES: 1. Status post ground level fall. 2. Left subcapital hip fracture. 3. History of deep venous thrombosis and pulmonary embolism, on home Xarelto. 4. Acute traumatic pain. DISCHARGE DIAGNOSES: 1. Status post ground level fall. 2. Left subcapital hip fracture. 3. History of deep venous thrombosis and pulmonary embolism, on home Xarelto. 4. Acute traumatic pain. 5. New onset atrial fibrillation. PROCEDURES PERFORMED: Left hip bipolar hemiarthroplasty. HOSPITAL COURSE: Mr. Mcmahan is an 86-year-old male who was in his usual state of health when he los t his balance and fell. He was taken to the [facility] by EMS where he was found to have a left h ip fracture. He was taken to the OR on 09/05/[address] Humberto Beltran for surgical fixati on of his left hip. Subsequently, he was transferred to the surgical floor. He subsequently develop ed atrial fibrillation with RVR. He was transferred to telemetry where he was evaluated by Dr. Kaylan nj. He was started on oral amiodarone and Cardizem drip. After this, he converted to a normal sinus rhythm, where he remained for the rest of his stay. The patient was otherwise stable for the duratio n of his stay. His Cardizem drip was discontinued and his amiodarone was reduced to 200 mg b.i.d. H e was discharged to rehab on 09/09/2017 in stable condition with instructions to follow up with Dr. Jovon glaser in 3 weeks. DISCHARGE MEDICATIONS: The patient was discharged to rehab with all of his inpatient medications: P lease see the electronic medical record for details. ACTIVITY INSTRUCTIONS: The patient has orthopedic limitations including hip precautions. Otherwise, activity as tolerated. NOURISHMENT INSTRUCTIONS: The patient discharged on a heart healthy diet. THERAPY INSTRUCTIONS: Occupational and physical therapy. FOLLOWUP INSTRUCTIONS: The patient is to follow up with Dr. Jose L Chacko, his primary care provider i n 14 days. The patient also instructed to follow up with Dr. Humberto Beltran in [facility] in 10 days. The patient instructed to follow up with Dr. Haynes in Cardiology in 3-4 weeks. This patient was seen and examined along with Dr. Jameson Nunn on rounds who agrees with this discha rge plan.
[2017-09-10] MEDS ORDERED: Rivaroxaban 15 MG TAB PO SCH (09:00)
== END 2017-09-09 17:06 | DRG 470 ==
LOC: ERS 15:21 → SURG A 17:29 → 2SW 09-07 11:02 → 2NO 09-07 18:02
PROVIDERS: ADMIT Surgery; ATTEND Surgery
PROC: 0SRS0JA Replacement of Left Hip Joint, Femoral Surface with Synthetic Substitute, Uncemented, Open Approach (ICD-10-PCS; principal; 2017-09-05)
DX: S72.012A Unspecified intracapsular fracture of left femur, initial encounter for closed fracture (principal); I82.509 Chronic embolism and thrombosis of unspecified deep veins of unspecified lower extremity; I48.0 Paroxysmal atrial fibrillation; Z79.01 Long term (current) use of anticoagulants; Z86.711 Personal history of pulmonary embolism; Z87.891 Personal history of nicotine dependence; I70.90 Unspecified atherosclerosis
CPT/HCPCS: 36415; 36416; 70450; 71045; 72170; 80048; 80053; 82550; 82553; 83735; 83880; 84100; 84443; 84484; 85025; 85610; 85730; 93005; 93010; 93306; 94760; 96374; C9113; G0390; G8978-GP-CK; G8978-GP-CL; G8979-GP-CJ; G8987-GO-CK; G8988-GO-CI; J0131; J1100; J2001; J2405; J2704; J3010; J3475; J7050